=== PATIENT | female | born 1995 | race African-American/Black ===

== ENCOUNTER 2016-12-08 05:04 | Emergency (ER) | payer OTHER ==
[2016-12-08] MEDS ORDERED: DIPH/PERTUSS(ACELL)/TETANUS VAC/PF 0.5 ML SYR (>=10YO) IM ONE (05:17)
[2016-12-08] MEDS ORDERED: ACETAMINOPHEN 325 MG TABLET PO ONE (05:17)
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
[2016-12-08 08:54] VITALS: BP 111/60
== END 2016-12-08 07:35 | disposition home or self-care (01) ==
LOC: ER 05:04
DX: S90.811A Abrasion, right foot, initial encounter (principal); R07.81 Pleurodynia; R68.84 Jaw pain; V87.7XXA Person injured in collision between other specified motor vehicles (traffic), initial encounter
CPT/HCPCS: 70486; 72125; 90471; 90715; 99284